=== PATIENT | female | born 1995 | race Caucasian/White ===

== ENCOUNTER 2017-12-18 17:14 | Emergency (ER) | payer MEDICAID ==
--- NOTE | 2017-12-18 17:50 | EDPHY ---
General - History Smoking Status: Current every day smoker Time Seen by Provider: 12/18/17 17:38 Narrative: CHIEF COMPLAINT: Chest pain HISTORY OF PRESENT ILLNESS: Patient presents with complaints of chest and breast pain. She notes breast pain that started 2-3 weeks ago. It is described as an, throbbing pressure. She describes it as being very different from her menstrual type of pain. She has 1 week of chest pain that subsequently fell. It is retro sternal and just below the breast. Described as a pressure. It is moderate to severe at times, particularly with exertion. Worse with exertion inspiration. No cough with some shortness of breath at times. No fever chills. She did recently relocated from [facility] during this time frame. She has no history of venous thrombolic event. No history of exogenous estrogen use. No trauma or injury. No previous evaluation medications for this. No other associated complaints or modifying factors. REVIEW OF SYSTEMS: Ten systems reviewed and are negative unless otherwise noted in the HPI PCP: None established SPECIALISTS: None PAST MEDICAL HISTORY: Uncomplicated PAST SURGICAL HISTORY: No surgical history SOCIAL HISTORY: Daily smoker. Occasional alcohol use. Works as a server security administrator. Recently moved from [place] within the past 3 weeks. FAMILY HISTORY: Noncontributory EXAMINATION General Appearance: Alert, no distress. Well-developed well-nourished. Head: normocephalic, atraumatic Eyes: Pupils equal and round, no conjunctival pallor or injection ENT, Mouth: Mucous membranes moist Neck: Normal inspection, supple, non-tender Respiratory: Lungs are clear to auscultation. No wheezing rhonchi or crackles Cardiovascular: Regular rate and rhythm. No murmur Neurological: A&O, nonfocal, normal gait Skin: Warm and dry, no rash Extremities: Nontender, no pedal edema Psychiatric: Mood and affect normal DIFFERENTIAL DIAGNOSES: Including but not limited to PE, pleurisy, pericarditis, costochondritis, musculoskeletal pain, ACS MDM: 5:45 p.m. Chest pain of 1 week duration that is worse with exertion, is described as pleuritic and non reproducible with palpation. She was mildly tachycardic at time of arrival. Due to these findings and mild tachycardia, I have ordered a D -dimer. Low clinical suspicion for PE of significance. Suspect pleurisy versus pericarditis. Chest x-ray has been ordered. EKG currently obtained. Other than mild tachycardia, vital signs are within normal limits. She is well- appearing in no acute distress. 6:20 p.m. Chest x-ray is unremarkable. EKG unremarkable. Laboratory studies pending 6:40 p.m. Troponin, HCG and D-dimer all within normal limits/negative. Patient re- evaluated. Breast examination performed with Luis (RN) present for the exam. I do not appreciate any palpable mass or discharge from the nipple. No obvious source for pain. 7:00 p.m. Patient re-evaluated. We discussed discharge home with treatment for possible pleurisy. We discussed the multiple etiologies for this that I cannot ascertain at this time. We discussed that we are ruled out the emergent scenarios with laboratory studies and chest x-ray. We discussed anti- inflammatories and follow up with primary care physician. We discussed ED precautions for worsening symptoms, shortness of breath or heart rate. She is comfortable this plan and discharged home stable condition. EKG interpretation: Dr. Cifuentes SUPERVISION: Patient was independently examined, but I discussed the case with my secondary supervising physician Dr. Cifuentes ([facility]) Medical Decision Making: PHYSICIAN DOCUMENTATION: The patient was evaluated and managed by the Physician Social Welfare Clerk. My co- signature indicates that I have reviewed this chart and I agree with the findings and plan of care as documented. I am the secondary supervising physician. (Kelby Cifuentes) - Diagnostics EKG Interpretation: EKG: Complete interpretation has been separately recorded in the [facility] archive. Summary impression: Sinus rhythm, rate 90 (Kelby Cifuentes) Imaging Results: Imaging Impressions Chest X-Ray 12/18/17 17:48 Impression: No acute pulmonary disease. - Objective Vital Signs: Initial Vital Signs Temperature (C) 98.1 F 12/18/17 17:19 Heart Rate 104 H 12/18/17 17:19 Respiratory Rate 18 12/18/17 17:19 Blood Pressure 114/83 H 12/18/17 17:19 O2 Sat (%) 95 12/18/17 17:19 O2 Delivery Mode Room Air Allergies/Adverse Reactions: No Known Allergies Allergy (Unverified 12/18/17 17:25) Home Medications: Medication Instructions Recorded oxyCODONE HCL/ACETAMINOPHEN 1 each PO Q4-6PRN PRN #9 tablet 07/31/18 [Percocet 5-325 mg Tablet] Laboratory Results: Laboratory Results 12/18/17 18:10 12/18/17 12/18/17 12/18/17 18:15 18:10 18:10 D-Dimer 0.44 ug/mLFEU ug/mLFEU (0.00-0.50) Sodium 139 mEq/L mEq/L (135-145) Potassium 4.0 mEq/L mEq/L (3.3-5.0) Chloride 106 mEq/L mEq/L (97-110) Carbon Dioxide 24 mEq/l mEq/l (22-31) Anion Gap 9 mEq/L mEq/L (8-16) BUN 13 mg/dL mg/dL (7-23) Creatinine 0.8 mg/dL mg/dL (0.6-1.0) Estimated GFR > 60 Glucose 102 mg/dL H mg/dL (70-100) Calcium 9.1 mg/dL mg/dL (8.5-10.4) POC Troponin I 0.00 ng/mL ng/mL (0.00-0.08) Beta HCG, Quant < 2.39 mIU/mL mIU/mL (0.00-4.83) Point of Care Test Results: Chemistry 12/18/17 18:15 POC Troponin I 0.00 ng/mL ng/mL (0.00-0.08) Departure - Departure Disposition: Home, Routine, Self-Care Clinical Impression: Pleuritic chest pain, Pain of both breasts Condition: Good Instructions: Chest Pain (ED), Pleurisy (ED) Additional Instructions: 1. Ibuprofen 400-600 mg every 6-8 hours as needed for pain. Recommend 7-10 days therapy and stop 2. Pain medication as prescribed as needed 3. Contact Dr. Kidd, the on-call primary care physician to establish an for further care 4. ED precautions for worsening pain, shortness of breath, fever, high heart rate or difficulty breathing Referrals: Suzie Kidd MD [Medical Doctor] - As per Instructions Prescriptions: oxyCODONE HCL/ACETAMINOPHEN [Percocet 5-325 mg Tablet] 1 each PO Q4-6PRN PRN #9 tablet PRN Reason: Pain, Breakthrough
--- NOTE | 2017-12-18 17:52 | CPEKG ---
Heart Rate: 90 RR Interval: 667 P-R Interval: 132 QRSD Interval: 72 QT Interval: 336 QTC Interval: 411 P [place]: 65 QRS [place]: 56 T Wave [place]: 37 EKG Severity - NORMAL ECG - EKG Impression: SINUS RHYTHM Electronically Signed By: Kelby Cifuentes 18-Dec-2017 21:24:03
[2017-12-18 19:21] VITALS: BP 105/73
== END 2017-12-18 19:21 | disposition home or self-care (01) ==
DX: R07.9 Chest pain, unspecified (principal); N64.4 Mastodynia; F17.200 Nicotine dependence, unspecified, uncomplicated
CPT/HCPCS: 84484-PO

== ENCOUNTER 2018-07-04 04:54 | Emergency (ER) | payer MEDICAID ==
--- NOTE | 2018-07-04 05:08 | EDPHY ---
H & P Time Seen by Provider: 07/04/18 05:08 HPI/ROS: HPI CHIEF COMPLAINT: "I have had abdominal pain since the fall" HISTORY OF PRESENT ILLNESS: A 22-year-old female otherwise healthy no significant medical history presents emergency room with upper abdominal pain. Patient reports she has had this pain on and off since to fall. Rather constant. Describes a burning sensation or epigastric sometimes goes up into her throat. She states she was seen in the emergency room for this before given a GI cocktail neck greatly improved. She has not followed up with GI. She denies any chest pain or shortness of breath, denies fever, denies vomiting , denies lower abdominal pain. Denies back pain. She does report to me she drinks a beer daily sometimes more, additionally smokes daily. Decided come the emergency room tonight as she had increasing pain. She denies black tarry stools. Denies chest pain or shortness of breath or fever. Past Medical History: GERD. Past Surgical History: Denies recent surgery Social History: Daily alcohol use. Usually 1 beer sometimes more. Daily tobacco use 2-3 cigarettes. Denies other illicit drugs. Family History: Noncontributory ROS REVIEW OF SYSTEMS: 10 Systems were reviewed and negative with the exception of the elements mentioned in the history of present illness. Exam Constitutional nontoxic no acute distress, triage nursing summary reviewed, vital signs reviewed, awake/alert. Eyes normal conjunctivae and sclera, EOMI, PERRLA. HENT normal inspection, atraumatic, moist mucus membranes, no epistaxis, neck supple/ no meningismus, no raccoon eyes. Respiratory clear to auscultation bilaterally, normal breath sounds, no respiratory distress, no wheezing. Cardiovascular rate normal, regular rhythm, no murmur, no edema, distal pulses normal. Gastrointestinal soft, non-tender, no rebound, no guarding, normal bowel sounds, no distension, no pulsatile mass. Genitourinary no CVA tenderness. Musculoskeletal no midline vertebral tenderness, full range of motion, no calf swelling, no tenderness of extremities, no meningismus, good pulses, neurovascularly intact. Skin pink, warm, & dry, no rash, skin atraumatic. Neurologic awake, alert and oriented x 3, AAOx3, moves all 4 extremities equally, motor intact, sensory intact, CN II-XII intact, normal cerebellar, normal vision, normal speech. Psychiatric normal mood/affect. Heme/Lymph/Immune no lymphadenopathy. Differential Diagnosis: Differential diagnosis includes but is not limited to and in no particular order: Gastritis, GERD, esophageal spasm, peptic ulcer disease, H pylori Bowel obstruction, appendicitis, gallbladder disease, diverticulitis, colitis, enteritis, perforated viscus, gastritis, GERD, esophagitis, urinary tract infection, pyelonephritis, kidney stones Medical Decision Making: Plan for this patient IV establishment IV fluid bolus IV Pepcid, GI cocktail, basic blood work and re-evaluate. Re-evaluation: 0647: Re-examination at this time. Abdomen soft nontender. She states she feels much better after GI cocktail. Blood work reviewed and is unremarkable. I do encourage her to follow up with Gastroenterology. Additionally I will place her on Zantac. I believe the patient is having gastritis versus peptic ulcer disease. Additionally I discussed return precautions return emergency room if worsening abdominal pain, fever, vomiting she is comfortable this plan. Feels much improved after GI cocktail. Her abdomen is soft nontender I do not feel that she needs any imaging at this time. Return precautions discussed. Source: Patient - Medical/Surgical History Hx Asthma: No Hx Chronic Respiratory Disease: No Hx Diabetes: No Hx Cardiac Disease: No Hx Renal Disease: No Hx Cirrhosis: No Hx Alcoholism: No Hx HIV/AIDS: No Hx Splenectomy or Spleen Trauma: No Other PMH: none - Social History Smoking Status: Current every day smoker Constitutional: Initial Vital Signs Temperature (C) 36.7 C 07/04/18 05:08 Heart Rate 94 07/04/18 05:08 Respiratory Rate 18 07/04/18 05:08 Blood Pressure 125/79 H 07/04/18 05:08 O2 Sat (%) 95 07/04/18 05:08 O2 Delivery Mode Room Air Allergies/Adverse Reactions: No Known Allergies Allergy (Verified 12/22/17 15:56) Home Medications: Medication Instructions Recorded Pantoprazole Sodium [Protonix] 40 mg PO DAILY #15 tab 12/22/17 Ranitidine HCl [Zantac] 150 mg PO DAILY #14 tablet 07/04/18 Medical Decision Making - Data Points Laboratory Results: Laboratory Results 07/04/18 05:30 07/04/18 05:30 07/04/18 07/04/18 07/04/18 05:30 05:30 05:30 WBC 5.21 10^3/uL 10^3/uL (3.80-9.50) RBC 4.66 10^6/uL 10^6/uL (4.18-5.33) Hgb 14.1 g/dL g/dL (12.6-16.3) Hct 42.4 % % (38.0-47.0) MCV 91.0 fL fL (81.5-99.8) MCH 30.3 pg pg (27.9-34.1) MCHC 33.3 g/dL g/dL (32.4-36.7) RDW 14.1 % % (11.5-15.2) Plt Count 161 10^3/uL 10^3/uL (150-400) MPV 10.0 fL fL (8.7-11.7) Neut % (Auto) 57.8 % % (39.3-74.2) Lymph % (Auto) 19.6 % % (15.0-45.0) [place] % (Auto) 18.0 % H % (4.5-13.0) Eos % (Auto) 3.6 % % (0.6-7.6) Baso % (Auto) 0.8 % % (0.3-1.7) Nucleat RBC Rel Count 0.0 % % (0.0-0.2) Absolute Neuts (auto) 3.01 10^3/uL 10^3/uL (1.70-6.50) Absolute Lymphs (auto) 1.02 10^3/uL 10^3/uL (1.00-3.00) Absolute Monos (auto) 0.94 10^3/uL H 10^3/uL (0.30-0.80) Absolute Eos (auto) 0.19 10^3/uL 10^3/uL (0.03-0.40) Absolute Basos (auto) 0.04 10^3/uL 10^3/uL (0.02-0.10) Absolute Nucleated RBC 0.00 10^3/uL 10^3/uL (0-0.01) Immature Gran % 0.2 % % (0.0-1.1) Immature Gran # 0.01 10^3/uL 10^3/uL (0.00-0.10) Sodium 137 mEq/L mEq/L (135-145) Potassium 4.4 mEq/L mEq/L (3.5-5.2) Chloride 110 mEq/L mEq/L (97-110) Carbon Dioxide 22 mEq/l mEq/l (22-31) Anion Gap 5 mEq/L L mEq/L (6-14) BUN 9 mg/dL mg/dL (7-23) Creatinine 0.7 mg/dL mg/dL (0.6-1.0) Estimated GFR > 60 Glucose 96 mg/dL mg/dL (70-100) Calcium 8.9 mg/dL mg/dL (8.5-10.4) Total Bilirubin 0.4 mg/dL mg/dL (0.1-1.4) Conjugated Bilirubin 0.3 mg/dL mg/dL (0.0-0.5) Unconjugated Bilirubin 0.1 mg/dL mg/dL (0.0-1.1) AST 24 IU/L IU/L (14-46) ALT 30 IU/L IU/L (9-52) Alkaline Phosphatase 69 IU/L IU/L (38-126) Total Protein 6.8 g/dL g/dL (6.3-8.2) Albumin 4.0 g/dL g/dL (3.5-5.0) Lipase 70 IU/L IU/L (23-300) Beta HCG, Qual NEGATIVE Medications Given: Discontinued Medications Al Hydroxide/Mg Hydroxide (Maalox Susp) 30 ml PO ONCE ONE Stop: 07/04/18 05:13 Last Admin: 07/04/18 05:35 Dose: 30 ml Famotidine (Pepcid) 20 mg IVP EDNOW ONE Stop: 07/04/18 05:17 Last Admin: 07/04/18 05:36 Dose: 20 mg Hyoscyamine Sulfate (Levsin, Hyomax-Sl) 0.25 mg PO ONCE ONE Stop: 07/04/18 05:13 Last Admin: 07/04/18 05:36 Dose: 0.25 mg Sodium Chloride (Ns) 1,000 mls @ 0 mls/hr IV EDNOW ONE; Wide Open PRN Reason: Protocol Stop: 07/04/18 05:13 Last Admin: 07/04/18 05:44 Dose: 1,000 mls Lidocaine (Lidocaine 2% Viscous) 15 ml PO ONCE ONE Stop: 07/04/18 05:13 Last Admin: 07/04/18 05:35 Dose: 15 ml Departure - Departure Disposition: Home, Routine, Self-Care Clinical Impression: Gastritis Condition: Good Instructions: Gastritis (ED) Additional Instructions: 1. No spicy fatty greasy foods. 2. Antacid medication as prescribed 3. Follow up with Gastroenterology 4. Return emergency room if worsening abdominal pain fever vomiting. Referrals: NONE *PRIMARY CARE P,. [Primary Care Provider] - As per Instructions Kenneth Rodriguez MD [Medical Doctor] - As per Instructions Prescriptions: Ranitidine HCl [Zantac] 150 mg PO DAILY #14 tablet
[2018-07-04] MEDS ORDERED: MAG HYDROX/AL HYDROX/SIMETH 30 ML UDCUP PO ONE (05:12)
[2018-07-04] MEDS ORDERED: HYOSCYAMINE SULFATE 0.125 MG TAB PO ONE (05:12)
[2018-07-04] MEDS ORDERED: NS 1,000 ML IV ONE (05:12)
[2018-07-04] MEDS ORDERED: LIDOCAINE 2% VISCOUS 15 ML UDCUP PO ONE (05:12)
[2018-07-04] MEDS ORDERED: FAMOTIDINE 20 MG/2 ML SDV IVP ONE (05:16)
[2018-07-04 05:54] LABS: PLATELET COUNT 161 10^3/uL (150-400)
[2018-07-04 07:22] VITALS: BP 108/76
== END 2018-07-04 07:21 | disposition home or self-care (01) ==
DX: K29.70 Gastritis, unspecified, without bleeding (principal); E86.9 Volume depletion, unspecified; F10.10 Alcohol abuse, uncomplicated; F17.200 Nicotine dependence, unspecified, uncomplicated
CPT/HCPCS: 96374